=== PATIENT | female | born 1980 | race Caucasian/White ===

== ENCOUNTER 2024-10-27 03:46 | Emergency (ER) | payer OTHER ==
--- OUTSIDE RECORDS SUMMARY | 2024-10-27 03:51 | XMS REPORT | Continuity of Care Document ---
Author Name Unknown Address [address] [facility] [address] [place] [address] [facility] [address] [facility] [address] [place] [address] Care Team Providers Care Research Subject Name Role Phone Cipriano Ramirez Primary Care Physician [phone] Clayton Felix Attending Clinician [phone] Unknown, Attending Attending Clinician Unavailab CLAYTON Oglesby Attending Clinician UnavailObdulio Triplett Attending Clinician [phone] Unknown, Attending Attending Clinician Unavailab OBDULIO Sanchez Attending Clinician Unavailable Doctor Unassigned, [facility] Attending Clinician U SHAHZAD Don Attending Clinician Unavailable Shahzad Alvarez NP Attending Clinician [phone] Alia Blackmon MA Attending Clinician Unavailanshu del real Pcp, Patient Does Not Have A Attending Clinician Danielle Calle RN Attending Clinician Unavailable Only, Ang Db Test Attending Clinician UnavailMerary Kitchen MD Attending Clinician [phone] MERARY ALCARAZ Attending Clinician Unavailable MARY LOU SWANSON Attending Clinician Unavailable Kiki ECHEVERRIAPMary Lou Attending Clinician [phone] Jolanta Campbell Attending Clinician [phone] JOLANTA FISH Attending Clinician UnavailMER Teran A Attending Clinician Unavailable Provider, [facility] Attending Clinician Unavailable Lab, [facility] Pob I Attending Clinician Unavailab martina Anderson RECORDS MANAGEMENT ANALYST, Mer Lisa Attending Clinician [phone] [phone], [facility] Main Attending Clinician UnavailDelfin Mills DO Attending Clinician [phone] HAWA COPE Attending Clinician Unavaila MIKE Beckham Attending Clinician Unavailable Jacqueline Elam Attending Clinician [phone] Deb HOYT, Kevin Angelo Attending Clinician [phone] Khurram RECORDS MANAGEMENT ANALYST, Deonte Attending Clinician [phone] Kassandra RECORDS MANAGEMENT ANALYST, Clayton Simmons Attending Clinician + [phone] JACQUELINE BEAVER Attending Clinician Unavailable Jaki CARRILLO, Em Marquez Attending Clinician Natalie paulina Boyd RECORDS MANAGEMENT ANALYST, Arlyn Attending Clinician [phone] UNKNOWN, ATTENDING Attending Clinician Unavailab MANUEL Best Attending Clinician Unavailable Leana Escobar PA-C Attending Clinician [phone], [facility] Attending Clinician Unavailable SHAHZAD ALVAREZ Admitting Clinician Unavailable Payers Payer Name Policy Type Policy Number Effective Date Expirati on Date Source Problems Condition Name Condition Details Condition Category Status Onset Date Resolution Date Last Treatment Date Treating Clinician Comments Source Right ureteral stone Right ureteral stone Disease Active 11-02 00:00: 00 [facility] Ureteral stone with hydronephr osis Ureteral stone with hydronephr osis Disease Active 12-05 00:00: 00 [facility] Ureteral stone with hydronephr osis Ureteral stone with hydronephr osis Disease Active 12-05 00:00: 00 [facility] Ureteral stone with hydronephr osis Ureteral stone with hydronephr osis Disease Active 12-05 00:00: 00 [facility] UTI (lower urinary tract infection) UTI (lower urinary tract infection) Disease Active 2014-08 0-10 00:00: 00 [facility] Allergies, Adverse Reactions, Alerts Allergy Name Allergy Type Status Severity Reaction(s) Onset Date Inactive Date Treating Clinician Comments Source NO KNOWN ALLERGIE S Drug Class Active [facility] Social History Social Habit Start Date Stop Date Quantity Comments Source History of tobacco use Cigarette Smoker [facility] History SDOH Alcohol Frequency [facility] History SDOH Alcohol Std Drinks [facility] History SDOH Alcohol Binge [facility] Sexual orientation U [facility] Alcohol intake 2023-09-17 00:00:00 2023-09-17 00:00:00 Current drinker of alcohol (finding) [facility] Alcoholic beverage intake 2023-09-17 00:00:00 2023-09-17 00:00:00 Current drinker of alcohol (finding) [facility] Exposure to SARS-CoV-2 (event) 2022-10-30 00:00:00 2022-11-09 17:16:00 Not sure [facility] History of Social function 2021-03-06 00:00:00 2021-03-06 00:00:00 [facility] Cigarettes smoked current (pack per day) - Reported 2020-06-11 00:00:00 2020-06-11 00:00:00 [facility] Cigarette pack-years 2020-06-11 00:00:00 2020-06-11 00:00:00 [facility] Tobacco use and exposure 2020-06-11 00:00:00 2020-06-11 00:00:00 Smokeless tobacco non-user [facility] Alcohol Comment 2018-10-11 00:00:00 2018-10-11 00:00:00 weekends [facility] Sex assigned at 1980 00:00:00 1980 00:00:00 [facility] Smoking Status Start Date Stop Date Source Ex-smoker 2020-06-11 00:00:00 2020-06-11 00:00:00 [facility] Current every day smoker 2020-01-18 00:00:00 [facility] Medications Ordered Medication Name Filled Medication Name Start Date Stop Date Current Medication? Ordering Clinician Indication Dosage Frequency Signature (SIG) Comments Components Source levocetiriz ine 5 mg tablet 10-20 00:00: 00 Yes [id number] 5mg Take 1 tablet by mouth every evening. [facility] fluticasone propionate 50 mcg/actuati on nasal spray 10-20 00:00: 00 11-20 04:59 :00 Yes [id number] 1{spray } Use 1 Orestes in each nostril in the morning for 30 days. [facility] cefdinir 300 mg capsule 10-20 00:00: 00 10-28 05:59 :00 Yes [id number] 300mg Take 1 capsule by mouth in the morning and 1 capsule in the evening. Do all this for 7 days. [facility] ofloxacin 0.3 % ophthalmic solution 09-17 00:00: 00 Yes [id number] 1[drp] Place 1 Drop in left eye 4 (four) times daily. [facility] cefTRIAXone (ROCEPHIN) 1,000 mg in NaCl 0.9% (NS) 100 mL MINI-BAG 11-10 01:15: 00 11-10 01:27 :00 No 1000mg 1,000 mg, IV Piggyback, ONCE, 1 dose, On Thu11/09/22 at 2015, Administer over 30 Minutes, 100 mL
Reas on for Anti-Infec tive: Documented Infection< br>Documen raya Infection Site: Urine
D uration of Therapy: 7 days [facility] ketorolac (TORADOL) injection 30 mg 11-09 22:45: 00 11-09 22:13 :00 No 30mg 30 mg, Slow IV Push, ONCE, 1 dose, On Thu11/09/22 at 1745, Routine [facility] ketorolac 10 mg tablet 11-09 00:00: 00 Yes [id number] 10mg Take 1 tablet by mouth every 6 (six) hours as needed for Pain (scale 4-6) or Pain (scale 7-10). [facility] cefdinir 300 mg capsule 11-09 00:00: 00 11-20 04:59 :00 No [id number] 300mg Take 1 capsule by mouth every 12 (twelve) hours for 10 days. [facility] clonazePAM (KLONOPIN) 0.5 mg tablet 1-11 14:22: 05 Yes .5mg Take 0.5 mg by mouth 3 (three) times daily. [facility] cephALEXin (KEFLEX) 500 mg capsule 03-08 00:00: 00 03-16 04:59 :00 No 500mg Take 1 capsule by mouth 2 (two) times daily for 7 days. [facility] cephALEXin (KEFLEX) 500 mg capsule 12-14 00:00: 00 03-08 00:00 :00 No [id number] 500mg Take 1 capsule by mouth 2 (two) times daily. [facility] nitrofurant oin 50 mg capsule 01-17 00:00: 00 Yes [id number] Take 1 PO after intercours e [facility] Nitrofurant oin&Nit. Macrocryst (MACROBID) 100 mg capsule 11-30 00:00: 00 01-17 00:00 :00 No [id number] 100mg Take 1 capsule by mouth 2 (two) times daily with meals. [facility] bromphenira mine-pseudo ephedrine-D M (BROMFED DM) 2-30-10 mg/5 mL syrup 10-23 00:00: 11-09 00:00 :00 No [id number] 5mL Take 5 mL by mouth 3 (three) times daily as needed for Cough. [facility] ibuprofen 400 mg tablet 10-23 00:00: 00 11-09 00:00 :00 No [id number] 400mg Take 1 tablet by mouth every 6 (six) hours as needed for Temp > 38.5 C. [facility] clonazePAM (KLONOPIN) 0.5 mg tablet 1 17:45: 53 Yes .5mg Take 0.5 mg by mouth 3 (three) times daily. [facility] oseltamivir (TAMIFLU) 75 mg capsule 09-17 00:00: 00 09-23 05:59 :00 No [id number] 75mg Take 1 capsule by mouth 2 (two) times daily for 5 days. [facility] phenazopyri dine (PYRIDIUM) 100 mg tablet 09-01 00:00: 00 11-09 00:00 :00 No [id number] 200mg Take 2 tablets by mouth 3 (three) times daily as needed for Pain (scale 4-6). [facility] ciprofloxac in HCl 500 mg tablet 09-01 00:00: 11-30 00:00 :00 No [id number] 500mg Take 1 tablet by mouth every 12 (twelve) hours. [facility] ciprofloxac in HCl 500 mg tablet 2018-08 00:00: 11-30 00:00 :00 No [id number] 500mg Take 1 tablet by mouth every 12 (twelve) hours. [facility] Nitrofurant oin&Nit. Macrocryst (MACROBID) 100 mg capsule 05-11 00:00: 00 11-30 00:00 :00 No [id number] 100mg Take 1 capsule by mouth SEE-INSTRU CTIONS. Take 1 PO after intercours e [facility] ciprofloxac in HCl (CIPRO) 500 mg tablet 04-20 00:00: 00 05-11 00:00 :00 No [id number] 500mg Take 1 tablet by mouth every 12 (twelve) hours. [facility] ciprofloxac in HCl (CIPRO) 500 mg tablet 03-10 00:00: 00 04-20 00:00 :00 No [id number] 500mg Take 1 tablet by mouth 2 (two) times daily. [facility] clonazePAM (KLONOPIN) 0.5 mg tablet 02-01 21:08: 10 Yes .5mg Take 0.5 mg by mouth 3 (three) times daily. [facility] ondansetron (ZOFRAN ODT) 4 mg disintegrat ing tablet 01-25 00:00: 00 11-09 00:00 :00 No [id number] 4mg Take 1 tablet by mouth every 8 (eight) hours as needed for Nausea and Vomiting (N/V). [facility] dicyclomine (BENTYL) 20 mg tablet 01-25 00:00: 00 11-09 00:00 :00 No [id number] 20mg Take 1 tablet by mouth 4 (four) times daily as needed for Abdominal pain. [facility] naproxen 500 mg tablet 10-11 00:00: 00 11-09 00:00 :00 No [id number] 500mg Take 1 tablet by mouth every 8 (eight) hours as needed for Pain (scale 4-6). [facility] Vital Signs Vital Name Observation Time Observation Value Comments S ource Systolic blood pressure 2024-10-20 15:36:00 110 mm[Hg] [facility] Diastolic blood pressure 2024-10-20 15:36:00 74 mm[Hg] [facility] Heart rate 2024-10-20 15:36:00 82 /min [facility] Body temperature 2024-10-20 15:36:00 37 Nay [facility] Respiratory rate 2024-10-20 15:36:00 21 /min [facility] Body height 2024-10-20 15:36:00 149.9 cm [facility] Body weight 2024-10-20 15:36:00 63.005 kg [facility] BMI 2024-10-20 15:36:00 28.05 kg/m2 [facility] Oxygen saturation in Arterial blood by Pulse oximetry 2024-10-20 15:36:00 99 /min [facility] Systolic blood pressure 2023-09-17 17:35:00 116 mm[Hg] [facility] Diastolic blood pressure 2023-09-17 17:35:00 79 mm[Hg] [facility] Heart rate 2023-09-17 17:35:00 85 /min [facility] Body temperature 2023-09-17 17:35:00 37.33 Nay [facility] Respiratory rate 2023-09-17 17:35:00 16 /min [facility] Body height 2023-09-17 17:35:00 149.9 cm [facility] Body weight 2023-09-17 17:35:00 60.782 kg [facility] BMI 2023-09-17 17:35:00 27.06 kg/m2 [facility] Oxygen saturation in Arterial blood by Pulse oximetry 2023-09-17 17:35:00 98 /min [facility] Systolic blood pressure 2022-11-10 01:22:00 129 mm[Hg] [facility] Diastolic blood pressure 2022-11-10 01:22:00 90 mm[Hg] [facility] Heart rate 2022-11-10 01:22:00 78 /min [facility] Body temperature 2022-11-10 01:22:00 36.89 Nay [facility] Respiratory rate 2022-11-10 01:22:00 18 /min [facility] Oxygen saturation in Arterial blood by Pulse oximetry 2022-11-10 01:22:00 100 /min [facility] Body height 2022-11-09 20:36:00 149.9 cm [facility] Body weight 2022-11-09 20:36:00 68.04 kg [facility] BMI 2022-11-09 20:36:00 30.30 kg/m2 [facility] Systolic blood pressure 2022-04-20 21:31:00 136 mm[Hg] [facility] Diastolic blood pressure 2022-04-20 21:31:00 94 mm[Hg] [facility] Heart rate 2022-04-20 21:31:00 90 /min Un[facility] Body temperature 2022-04-20 21:31:00 36.94 Nay [facility] Respiratory rate 2022-04-20 21:31:00 17 /min [facility] Body height 2022-04-20 21:31:00 149.9 cm [facility] Body weight 2022-04-20 21:31:00 66.815 kg [facility] BMI 2022-04-20 21:31:00 29.75 kg/m2 [facility] Oxygen saturation in Arterial blood by Pulse oximetry 2022-04-20 21:31:00 99 /min [facility] Systolic blood pressure 2021-09-03 20:21:00 129 mm[Hg] [facility] Diastolic blood pressure 2021-09-03 20:21:00 84 mm[Hg] [facility] Heart rate 2021-09-03 20:21:00 87 /min [facility] Body temperature 2021-09-03 20:21:00 36.5 Nay [facility] Respiratory rate 2021-09-03 20:21:00 16 /min [facility] Body height 2021-09-03 20:21:00 152.4 cm [facility] Body weight 2021-09-03 20:21:00 67.132 kg [facility] BMI 2021-09-03 20:21:00 28.90 kg/m2 [facility] Oxygen saturation in Arterial blood by Pulse oximetry 2021-09-03 20:21:00 98 /min [facility] Systolic blood pressure 2021-03-06 16:21:00 128 mm[Hg] [facility] Diastolic blood pressure 2021-03-06 16:21:00 85 mm[Hg] [facility] Heart rate 2021-03-06 16:21:00 90 /min [facility] Body temperature 2021-03-06 16:21:00 36.44 Nay [facility] Respiratory rate 2021-03-06 16:21:00 16 /min [facility] Body height 2021-03-06 16:21:00 154.9 cm [facility] Body weight 2021-03-06 16:21:00 71.487 kg [facility] BMI 2021-03-06 16:21:00 29.78 kg/m2 [facility] Oxygen saturation in Arterial blood by Pulse oximetry 2021-03-06 16:21:00 99 /min [facility] Systolic blood pressure 2020-07-26 01:04:00 128 mm[Hg] [facility] Diastolic blood pressure 2020-07-26 01:04:00 86 mm[Hg] [facility] Heart rate 2020-07-26 01:04:00 99 /min [facility] Body temperature 2020-07-26 01:04:00 37.72 Nay [facility] Respiratory rate 2020-07-26 01:04:00 18 /min [facility] Body height 2020-07-26 01:04:00 154.9 cm [facility] Body weight 2020-07-26 01:04:00 70.308 kg [facility] BMI 2020-07-26 01:04:00 29.29 kg/m2 [facility] Oxygen saturation in Arterial blood by Pulse oximetry 2020-07-26 01:04:00 97 /min [facility] Systolic blood pressure 2020-06-12 00:34:00 139 mm[Hg] [facility] Diastolic blood pressure 2020-06-12 00:34:00 88 mm[Hg] [facility] Heart rate 2020-06-12 00:34:00 98 /min [facility] Body temperature 2020-06-12 00:34:00 36.72 Nay [facility] Respiratory rate 2020-06-12 00:34:00 16 /min [facility] Body height 2020-06-12 00:34:00 152.4 cm [facility] Body weight 2020-06-12 00:34:00 71.215 kg [facility] BMI 2020-06-12 00:34:00 30.66 kg/m2 [facility] Oxygen saturation in Arterial blood by Pulse oximetry 2020-06-12 00:34:00 97 /min [facility] Systolic blood pressure 2020-01-18 18:44:00 127 mm[Hg] [facility] Diastolic blood pressure 2020-01-18 18:44:00 86 mm[Hg] [facility] Heart rate 2020-01-18 18:44:00 80 /min [facility] Body temperature 2020-01-18 18:44:00 36.83 Nay [facility] Respiratory rate 2020-01-18 18:44:00 20 /min [facility] Body height 2020-01-18 18:44:00 149.9 cm [facility] Body weight 2020-01-18 18:44:00 70.571 kg [facility] BMI 2020-01-18 18:44:00 31.42 kg/m2 [facility] Oxygen saturation in Arterial blood by Pulse oximetry 2020-01-18 18:44:00 98 /min [facility] Systolic blood pressure 2019-10-25 00:41:00 126 mm[Hg] [facility] Diastolic blood pressure 2019-10-25 00:41:00 84 mm[Hg] [facility] Heart rate 2019-10-25 00:41:00 93 /min [facility] Body temperature 2019-10-25 00:41:00 37.17 Nay [facility] Respiratory rate 2019-10-25 00:41:00 18 /min [facility] Body height 2019-10-25 00:41:00 149.9 cm [facility] Body weight 2019-10-25 00:41:00 70.308 kg [facility] BMI 2019-10-25 00:41:00 31.31 kg/m2 [facility] Oxygen saturation in Arterial blood by Pulse oximetry 2019-10-25 00:41:00 96 /min [facility] Systolic blood pressure 2019-09-17 18:24:00 119 mm[Hg] [facility] Diastolic blood pressure 2019-09-17 18:24:00 72 mm[Hg] [facility] Heart rate 2019-09-17 18:24:00 88 /min [facility] Body temperature 2019-09-17 18:24:00 36.89 Nay [facility] Respiratory rate 2019-09-17 18:24:00 18 /min [facility] Body height 2019-09-17 18:24:00 152.4 cm [facility] Body weight 2019-09-17 18:24:00 71.215 kg [facility] BMI 2019-09-17 18:24:00 30.66 kg/m2 [facility] Oxygen saturation in Arterial blood by Pulse oximetry 2019-09-17 18:24:00 97 /min [facility] Systolic blood pressure 2019-09-17 17:45:00 119 mm[Hg] [facility] Diastolic blood pressure 2019-09-17 17:45:00 72 mm[Hg] [facility] Heart rate 2019-09-17 17:45:00 88 /min [facility] Body temperature 2019-09-17 17:45:00 36.89 Nay [facility] Respiratory rate 2019-09-17 17:45:00 18 /min [facility] Body height 2019-09-17 17:45:00 152.4 cm [facility] Body weight 2019-09-17 17:45:00 72.213 kg [facility] BMI 2019-09-17 17:45:00 31.09 kg/m2 [facility] Oxygen saturation in Arterial blood by Pulse oximetry 2019-09-17 17:45:00 97 /min [facility] Systolic blood pressure 2019-05-11 20:34:00 106 mm[Hg] [facility] Diastolic blood pressure 2019-05-11 20:34:00 68 mm[Hg] [facility] Heart rate 2019-05-11 20:34:00 83 /min [facility] Body temperature 2019-05-11 20:34:00 36.61 Nay [facility] Respiratory rate 2019-05-11 20:34:00 18 /min [facility] Body height 2019-05-11 20:34:00 149.9 cm [facility] Body weight 2019-05-11 20:34:00 65.318 kg [facility] BMI 2019-05-11 20:34:00 29.08 kg/m2 [facility] Systolic blood pressure 2019-03-10 15:36:00 125 mm[Hg] [facility] Diastolic blood pressure 2019-03-10 15:36:00 87 mm[Hg] [facility] Heart rate 2019-03-10 15:36:00 80 /min [facility] Body temperature 2019-03-10 15:36:00 36.83 Nay [facility] Respiratory rate 2019-03-10 15:36:00 18 /min [facility] Body height 2019-03-10 15:36:00 149.9 cm [facility] Body weight 2019-03-10 15:36:00 65.59 kg [facility] BMI 2019-03-10 15:36:00 29.21 kg/m2 [facility] Procedures Procedure Date / Time Performed Performing Clinician Source POCT MOLECULAR FLU 2024-10-20 15:49:00 Unknown, Attend ing [facility] POCT URINALYSIS 2024-10-20 15:48:00 Clayton Cannon [facility] POCT MOLECULAR STREP 2024-10-20 15:45:00 Unknown, Atte dean [facility] ASSIGNMENT OF BENEFITS 2023-09-17 17:20:25 Docto r Unassigned, [facility] CT ABDOMEN PELVIS WO CONTRAST 2022-11-09 23:39:15 Shahzad Alvarez [facility] COMP. METABOLIC PANEL ([id number]) 2022-11-09 22:12:00 Shahzad Alvarez [facility] CBC WITH DIFF 2022-11-09 22:12:00 Shahzad Alvarez [facility] URINALYSIS 2022-11-09 22:12:00 Shahzad Alvarez [facility] POCT TEST 2022-11-09 22:09:00 Shahzad Alvarez [facility] NOTICE OF PRIVACY PRACTICES 2022-11-09 20:34:23 Doctor Unassigned, [facility] CONSENT/REFUSAL FOR DIAGNOSIS AND TREATMENT 2022-11-09 20:31:15 Doctor Unassigned, [facility] POCT MOLECULAR FLU 2022-04-20 21:46:00 [facility] 2022-04-20 21:35:00 Mary Lou Swanson [facility] ASSIGNMENT OF BENEFITS 2022-04-20 21:26:38 Docto r Unassigned, [facility] POCT MOLECULAR STREP 2021-09-03 20:26:00 Merary Alcaraz [facility] US RETROPERITONEAL COMPLETE 2021-03-12 01:09:17 Mer Anderson [facility] ASSIGNMENT OF BENEFITS 2021-03-06 17:55:37 Docto r Unassigned, [facility] ASSIGNMENT OF BENEFITS 2020-12-12 19:18:44 Docto r Unassigned, [facility] POCT GRP A STREP (MOLECULAR) 2020-07-26 01:26:00 Clayton Cannon [facility] POCT FLU A AND B (MOLECULAR) 2020-07-26 01:26:00 Clayton Cannon [facility] POCT FLU A AND B (MOLECULAR) 2020-06-12 00:36:00 Arlyn Boyd [facility] POCT URINALYSIS AUTO 2020-01-18 18:47:00 Mer Anderson [facility] ASSIGNMENT OF BENEFITS 2019-11-29 14:50:56 Docto r Unassigned, [facility] POCT GRP A STREP (MOLECULAR) 2019-10-24 00:00:00 Kiki [facility] POCT FLU A AND B (MOLECULAR) 2019-10-24 00:00:00 Kiki [facility] POCT GRP A STREP (MOLECULAR) 2019-09-17 18:16:00 Kiki [facility] POCT FLU A AND B (MOLECULAR) 2019-09-17 18:16:00 Kiki [facility] POCT URINALYSIS AUTO 2019-05-11 20:37:00 Mer Anderson [facility] ASSIGNMENT OF BENEFITS 2019-04-18 19:58:49 Docto r Unassigned, [facility] URINE CULTURE 2019-03-10 15:50:00 Mer Anderson [facility] POCT URINALYSIS AUTO 2019-03-10 15:48:00 Mer Anderson [facility] Encounters Start Date/Time End Date/Time Encounter Type Admission Type Attending [facility] Care Facility Care Department Encounter ID Source 2024-10-20 10:00:00 2024-10-20 10:20:00 Urgent Care Clayton Cannon Unknown, Attending COUNTS INCLUDE 234 BEDS AT THE [facility] 1..[id number] [facility] 2024-10-20 10:00:00 2024-10-20 10:00:00 Outpatient R CLAYTON CANNON [facility] [id number] [facility] 2023-09-17 11:20:00 2023-09-17 11:40:00 Urgent Care Obdulio Magaña, Attending COUNTS INCLUDE 234 BEDS AT THE [facility] [id number]..[id number] [facility] 2023-09-17 11:20:00 2023-09-17 11:20:00 Outpatient R OBDULIO MAGAÑA [facility] [id number] [facility] 2023-09-17 00:00:00 2023-09-17 00:00:00 Orders Only Doctor Unassigned, [facility] 1..840.114 350.1.13.10 4.2.7.2.686 [id number] [facility] 2023-09-17 00:00:00 2023-09-17 00:00:00 Letter (Out) Obdulio Magaña COUNTS INCLUDE 234 BEDS AT THE [facility] 1..840.114 350.1.13.10 4.2.7.2.686 [id number] [facility] 2022-11-09 15:36:00 2022-11-09 20:31:00 Emergency X SHAHZAD ALVAREZ [facility] ERT [id number] [facility] 2022-11-09 15:36:00 2022-11-09 20:31:00 Emergency Shahzad Alvarez [facility] 1..114 350.1.13.10 4.2.7.2.686 [id number] [facility] 2022-08-12 00:00:00 2022-08-12 00:00:00 Telephone Blackmon, Alia WOOD 1.0.114 350.1.13.10 4.2.7.2.686 [id number] [facility] 2022-08-08 00:00:00 2022-08-08 00:00:00 Case Management Blackmon, Alia WOOD 1.2.114 350.1.13.10 4.2.7.2.686 [id number] [facility] 2022-05-22 00:00:00 2022-05-22 00:00:00 Telephone Pcp, Patient Does Not Have A COUNTS INCLUDE 234 BEDS AT THE [facility] 1.84.114 350.1.13.10 4.2.7.2.686 [id number] [facility] 2022-05-14 00:00:00 2022-05-14 00:00:00 Letter (Out) Danielle Calle [facility] 1.114 350.1.13.10 4.2.7.2.686 [id number] [facility] 2022-05-13 10:30:00 2022-05-13 10:45:00 Laboratory Only Only, Ang Db Test Kieran Merary COUNTS INCLUDE 234 BEDS AT THE [facility] 1.2840.114 350.1.13.10 4.2.7.2.686 [id number] 370 [id number] [facility] 2022-05-13 10:30:00 2022-05-13 10:30:00 Outpatient R MERARY ALCARAZ [facility] [id number] [facility] 2022-04-21 00:00:00 2022-04-21 00:00:00 Letter (Out) Danielle Calle [facility] 1.2.840.114 350.1.13.10 4.2.7.2.686 [id number] [facility] 2022-04-20 16:20:00 2022-04-20 17:08:12 Outpatient R KIKI MARY LOU [facility] [id number] [facility] 2022-04-20 16:20:00 2022-04-20 17:08:12 Urgent Care Kiki [facility] 1.2.840.114 350.1.13.10 4.2.7.2.686 [id number] [facility] 2022-04-20 00:00:00 2022-04-20 00:00:00 Orders Only Doctor Unassigned, [facility] 1.2.840.114 350.1.13.10 4.2.7.2.686 [id number] [facility] 2021-09-03 14:00:00 2021-09-03 14:20:00 [facility] 1.2.840.114 350.1.13.10 4.2.7.2.686 [id number] [facility] 2021-09-03 14:00:00 2021-09-03 14:00:00 Outpatient R JOLANTA FISH [facility] [id number] [facility] 2021-05-08 15:00:00 2021-05-08 15:00:00 Outpatient R MER ANDERSON [facility] [id number] [facility] 2021-04-24 00:00:00 2021-04-24 00:00:00 Telephone Provider, Anastacio [facility] 1.114 350.1.13.10 4.2.7.2.686 [id number] [facility] 2021-04-23 11:39:19 2021-04-23 11:54:19 Laboratory Only Only, Anastacio Db Test Góemz [facility] 1.114 350.1.13.10 4.2.7.2.686 [id number] [facility] 2021-04-23 11:40:00 2021-04-23 11:40:00 Outpatient R GÓMEZ [facility] [id number] [facility] 2021-04-08 16:20:00 2021-04-08 16:20:00 Outpatient R JOLANTA FISH [facility] [id number] [facility] 2021-04-07 20:40:00 2021-04-07 20:40:00 Outpatient R CLAYTON CANNON [facility] [id number] [facility] 2021-04-05 15:12:04 2021-04-05 15:32:04 Laboratory Only Lab, Adc Fam Pob Eliezer Magaña [facility] 1.114 350.1.13.10 4.2.7.2.686 [id number] [facility] 2021-04-05 15:20:00 2021-04-05 15:20:00 Outpatient R GÓMEZ [facility] [id number] [facility] 2021-03-11 19:30:00 2021-03-11 23:59:00 Hospital Encounter Mer Anderson [facility] 1.114 350.1.13.10 4.2.7.2.686 [id number] [facility] 2021-03-11 00:00:00 2021-03-11 00:00:00 Outpatient R MER ANDERSON [facility] [id number] [facility] 2021-03-08 00:00:00 2021-03-08 00:00:00 Telephone Mer Anderson [facility] 1.2.840.114 350.1.13.10 4.2.7.2.686 [id number] [facility] 2021-03-06 12:58:36 2021-03-06 13:13:36 Equities Trader Visit Pob, Adc Lab Main Mer Anderson [facility] 1.2.840.114 350.1.13.10 4.2.7.2.686 [id number] [facility] 2021-03-06 11:03:59 2021-03-06 11:31:24 Office Visit Mer Anderson [facility] 1.2.840.114 350.1.13.10 4.2.7.2.686 [id number] [facility] 2021-03-06 11:00:00 2021-03-06 11:00:00 Outpatient R MER ANDERSON [facility] [id number] [facility] 2021-03-06 00:00:00 2021-03-06 00:00:00 Orders Only Doctor Unassigned, [facility] 1.2840.114 350.1.13.10 4.2.7.2.686 [id number] [facility] 2021-01-02 08:00:00 2021-01-02 08:00:00 Outpatient R MER ANDERSON [facility] [id number] [facility] 2020-12-14 00:00:00 2020-12-14 00:00:00 Telephone Mer Anderson [facility] 1.2.840.114 350.1.13.10 4.2.7.2.686 [id number] [facility] 2020-12-12 14:21:14 2020-12-12 14:36:14 Equities Trader Visit Pob, Adc Lab Main Mer Anderson [facility] 1.2.840.114 350.1.13.10 4.2.7.2.686 [id number] [facility] 2020-12-12 14:30:00 2020-12-12 14:30:00 Outpatient R COOKIE ANDERSONELA [facility] [id number] [facility] 2020-12-12 00:00:00 2020-12-12 00:00:00 Case Management Mer Anderson [facility] 1.2.840.114 350.1.13.10 4.2.7.2.686 [id number] [facility] 2020-12-12 00:00:00 2020-12-12 00:00:00 Orders Only Doctor Unassigned, [facility] 1.2.840.114 350.1.13.10 4.2.7.2.686 [id number] [facility] 2020-11-12 00:00:00 2020-11-12 00:00:00 Patient Outreach Delfin Gregg [facility] 1.2.840.114 350.1.13.10 4.2.7.2.686 [id number] [facility] 2020-10-05 14:30:00 2020-10-05 14:30:00 Outpatient HAWA ART [facility] [id number] [facility] 2020-08-30 09:30:00 2020-08-30 09:30:00 Outpatient MIKE SPEARS [facility] [id number] [facility] 2020-07-29 00:00:00 2020-07-29 00:00:00 Telephone Jacqueline Beaver [facility] Special[facility] chrystal Bach 1..114 350.1.13.10 4.2.7.2.686 [id number] [facility] 2020-07-28 00:00:00 2020-07-28 00:00:00 Letter (Out) Kevin Boyd [facility] 1..114 350.1.13.10 4.2.7.2.686 [id number] [facility] 2020-07-25 18:50:55 2020-07-25 19:10:55 Urgent Care Deonte Paulson Kimberly J [facility] 1.114 350.1.13.10 4.2.7.2.686 [id number] [facility] 2020-07-25 15:13:48 2020-07-25 15:33:48 Laboratory Only Lab, Adc Fam Pob I Jacqueline Beaver [facility] 1.114 350.1.13.10 4.2.7.2.686 [id number] [facility] 2020-07-25 15:20:00 2020-07-25 15:20:00 Outpatient R JACQUELINE BEAVER [facility] [id number] [facility] 2020-06-12 00:00:00 2020-06-12 00:00:00 Telephone Em Suggs [facility] 1..114 350.1.13.10 4.2.7.2.686 [id number] [facility] 2020-06-12 00:00:00 2020-06-12 00:00:00 Telephone [facility] 1.114 350.1.13.10 4.2.7.2.686 [id number] [facility] 2020-06-11 19:31:09 2020-06-11 19:46:09 Urgent Care Arlyn Boyd Unknown, Attending [facility] 1.114 350.1.13.10 4.2.7.2.686 [id number] [facility] 2020-06-11 19:45:00 2020-06-11 19:45:00 Outpatient R UNKNOWN, ATTENDING [facility] [id number] [facility] 2020-02-02 10:15:00 2020-02-02 10:15:00 Outpatient R LEXIEMANUEL GRANADOS [facility] [id number] [facility] 2020-01-18 13:00:25 2020-01-18 14:27:24 Office Visit Mer Anderson [facility] 1.84.114 350.1.13.10 4.2.7.2.686 [id number] [facility] 2020-01-18 13:00:00 2020-01-18 13:00:00 Outpatient R MER ANDERSON [facility] [id number] [facility] 2020-01-11 15:00:00 2020-01-11 15:00:00 Outpatient R MER ANDERSON [facility] [id number] [facility] 2019-12-01 00:00:00 2019-12-01 00:00:00 Telephone Mer Anderson [facility] .84.114 350.1.13.10 4.2.7.2.686 [id number] [facility] 2019-11-29 09:57:59 2019-11-29 10:12:59 Equities Trader Visit Pob, Adc Lab Main Mer Anderson [facility] 1..114 350.1.13.10 4.2.7.2.686 [id number] [facility] 2019-11-29 10:00:00 2019-11-29 10:00:00 Outpatient R COOKIE ANDERSONELA [facility] [id number] [facility] 2019-11-29 00:00:00 2019-11-29 00:00:[address] [facility]..114 350.1.13.10 4.2.7.2.686 [id number] [facility] 2019-11-29 00:00:00 2019-11-29 00:00:00 Orders Only Doctor Unassigned, [facility] 1..114 350.1.13.10 4.2.7.2.686 [id number] [facility] 2019-10-24 18:33:15 2019-10-24 18:48:15 Urgent Care Liv Escobarcy Unknown, Attending [facility] 1..114 350.1.13.10 4.2.7.2.686 [id number] [facility] 2019-10-24 18:30:00 2019-10-24 18:30:00 Outpatient R UNKNOWN, ATTENDING [facility] [id number] [facility] 2019-09-17 12:24:01 2019-09-17 12:39:01 Urgent Care Green Mary Lou Unknown, Attending [facility] 1..114 350.1.13.10 4.2.7.2.686 [id number] [facility] 2019-09-17 11:45:00 2019-09-17 12:00:00 Urgent Care Green, Mary Lou Unknown, Attending [facility] 1.0.114 350.1.13.10 4.2.7.2.686 [id number] [facility] 2019-05-11 15:19:29 2019-05-11 16:06:10 Office Visit Mer Anderson [facility] 1.2.840.114 350.1.13.10 4.2.7.2.686 [id number] [facility] 2019-05-06 15:43:22 2019-05-06 15:58:22 Equities Trader Visit 1, Adc Lab Mer Anderson [facility] 1.2.840.114 350.1.13.10 4.2.7.2.686 [id number] [facility] 2019-04-20 00:00:00 2019-04-20 00:00:00 Telephone Mer Anderson [facility] 1.2.840.114 350.1.13.10 4.2.7.2.686 [id number] [facility] 2019-04-20 00:00:00 2019-04-20 00:00:00 Telephone Mer Anderson [facility] 1.2.840.114 350.1.13.10 4.2.7.2.686 [id number] [facility] 2019-04-18 14:58:12 2019-04-18 15:13:12 Equities Trader Visit 1, Adc Lab Mer Anderson [facility] 1.2.840.114 350.1.13.10 4.2.7.2.686 [id number] [facility] 2019-04-18 00:00:00 2019-04-18 00:00:00 Orders Only Doctor Unassigned, [facility] 1.2.840.114 350.1.13.10 4.2.7.2.686 [id number] [facility] 2019-03-10 10:32:18 2019-03-10 10:57:11 Office Visit [facility] 1.2.840.114 350.1.13.10 4.2.7.2.686 [id number] [facility] Results Test Description Test Time Test Comments Results Result Co mments Source [facility] Urinalysis W Specific [id number] 15:56:00* Test Item Value Reference Range Interpretation Comme nts POCT U SP GRAV (test code = 3255) 1.020 mg/dl 1.005-1.025 POCT PH U (test code = 3254) 5 mg/dl 5-8 POCT U LEUK EST (test code = 3263) Trace Negative - Negative POCT U NIT (test code = 3262) Positive Negative - Negati ve POCT U PROT (test code = 3259) negative Negative - Negative POCT U GLU (test code = 3256) normal Negative - Negati ve POCT U KETONE (test code = 3258) negative Negative - Negative POCT U UROBILI (test code = 3260) normal 0.2-1 POCT U BILI (test code = 3261) negative Negative - Negative POCT U BLD (test code = 3257) negative Negative - Negati ve POCT U COLOR (test code = 3266) yellow POCT U APPEAR (test code = 3267) cloudy Lab Interpretation (test cod e = 71844-3) Abnormal [facility] MOLECULAR [id number] 15:52:59* Test Item Value Reference Range Interpretation Comme nts POCT Molecular Strep (test c ode = 66342-0) Negative Negative Lab Interpretation (test cod e = 91075-7) [facility] [id number] 22:09:00* Test Item Value Reference Range Interpretation Comme nts POCT PREG (test code = 1605) NEGATIVE On board controls acceptable with C Line (test code = 3574) present POCT PREG LOT # (test code = 3575) [id number] POCT PREG TEST DATE ( test code = 3576) 01/22/2024 Lab Interpretation (test cod e = 70272-0) Normal [facility] MOLECULAR [id number] 21:58:27* Test Item Value Reference Range Interpretation Comme nts POCT Molecular FluA (test co de = 19370-0) Negative Negative POCT Molecular FluB (test co de = 09337-4) Negative Negative Lab Interpretation (test cod e = 58225-1) Normal [facility] MOLECULAR [id number] 21:45:45* Test Item Value Reference Range Interpretation Comme nts POCT Molecular Strep (test c ode = 38877-2) Negative Negative Lab Interpretation (test cod e = 92254-0) Normal [facility] MOLECULAR [id number] 20:33:37* Test Item Value Reference Range Interpretation Comme nts POCT Molecular Strep (test c ode = 76656-6) Negative Negative Lab Interpretation (test cod e = 64887-2) Normal [facility] RETROPERITONEAL [id number] 03:34:14 No hydronephrosis. 1.5 cm right renal cyst. Hepatic steatosis. RL: 111 EXAMINATION: US RETROPERITONEAL COMPLETE ORDERING PHYSICIAN: MER ANDERSON CLINICAL HISTORY: right Bosniak II renal cyst ; COMPARISON: None available TECHNIQUE: Sonographic images of both kidneys and the urinary bladder wereobtained. FINDINGS: Both kidneys are normal in echogenicity. The right kidneymeasures 11.9 x 4.2 x 5.0 cm. 1.5 x 1.2 x 1.7 cm right renal cyst. The leftkidney hdmyoswf61.7 x 4.8 x 4.9 cm. No hydronephrosis or echogenic renalcalculi. The urinary bladder wall does not appear thickened. Hepaticsteatosis. [facility], Radiant Results Inft User - 10:35 PM CDT EXAMINATION: US RETROPERITONEAL COMPLETEORDERING PHYSICIAN: MER ANDERSONCLINICAL HISTORY: right Bosniak II renal cyst ;COMPARISON: None availableTECHNIQUE: Sonographic images of both kidneys and the urinary bladder w ereobtained.FINDINGS: Both kidneys are normal in echogenicity. The right kidneymeasures 11.9 x 4.2 x 5.0 cm. 1.5 x 1.2 x 1.7 cm right renal cyst. The leftkidney nstahjnn90.7 x 4.8 x 4.9 cm. No hydronephrosis or echogenic renalcalculi. The urinary bladder wall does not appear thickened. Hepaticsteato sis.IMPRESSIONNo hydronephrosis.1.5 cm right renal cyst. Hepatic steatosis.RL: 111 [facility] GRP A STREP (MOLECULAR)2020-07-26 01:38:00* Test Item Value Reference Range Interpretation Comme nts POCT GP A STREP (test code = 56297-3) negative Negative - Negative DINORAH (test code = DINORAH) accurate developme nt and interpretation of all internal controls Lab Interpretation (test code = 92043-8) [facility] FLU A AND B (MOLECULAR)2020-07-26 01:38:00* Test Item Value Reference Range Interpretation Comme nts POCT INFLUENZA A (test code = 3840) negative Negative - Negative POCT INFLUENZA B (test code = 3841) negative Negative - Negative DINORAH (test code = DINORAH) accurate developme nt and interpretation of all internal controls Lab Interpretation (test code = 12002-6) [facility] GRP A STREP (MOLECULAR)2020-07-26 01:38:00* Test Item Value Reference Range Interpretation Comme nts POCT GP A STREP (test code = 65403-7) negative Negative - Negative DINORAH (test code = DINORAH) accurate developme nt and interpretation of all internal controls Lab Interpretation (test code = 72509-7) [facility] FLU A AND B (MOLECULAR)2020-07-26 01:38:00* Test Item Value Reference Range Interpretation Comme nts POCT INFLUENZA A (test code = 3840) negative Negative - Negative POCT INFLUENZA B (test code = 3841) negative Negative - Negative DINORAH (test code = DINORAH) accurate developme nt and interpretation of all internal controls Lab Interpretation (test code = 76321-6) [facility] FLU A AND B (MOLECULAR)2020-06-12 00:52:00* Test Item Value Reference Range Interpretation Comme nts POCT INFLUENZA A (test code = 3840) neg Negative - Negative POCT INFLUENZA B (test code = 3841) neg Negative - Negative DINORAH (test code = DINORAH) accurate developme nt and interpretation of all internal controls Lab Interpretation (test code = 83189-2) [facility] [id number] 18:49:00 * Test Item Value Reference Range Interpretation Comme nts POCT U SP GRAV (test code = 3255) 1.030 mg/dl 1.005-1.025 A POCT PH U (test code = 3254) 5.5 mg/dl 5-8 POCT U LEUK EST (test code = 3263) Trace Negative - Negative POCT U NIT (test code = 3262) Positive Negative - Negative POCT U PROT (test code = 3259) Negative - Negative POCT U GLU (test code = 3256) Negative Negative - Negative POCT U KETONE (test code = 3258) Negative Negative - Negative POCT U UROBILI (test code = 3260) 0.2 mg/dl 0.2-1 POCT U BILI (test code = 3261) Negative Negative - Negative POCT U BLD (test code = 3257) Large Negative - Negative POCT U COLOR (test code = 3266) dark yellow POCT U APPEAR (test code = 3267) clightly cloudy Lab Interpretation (test code = 40333-3) Abnormal [facility] URINALYSIS, [id number] 18:49:00 * Test Item Value Reference Range Interpretation Comme nts POCT U SP GRAV (test code = 3255) 1.030 mg/dl 1.005-1.025 A POCT PH U (test code = 3254) 5.5 mg/dl 5-8 POCT U LEUK EST (test code = 3263) Trace Negative - Negative POCT U NIT (test code = 3262) Positive Negative - Negative POCT U PROT (test code = 3259) Negative - Negative POCT U GLU (test code = 3256) Negative Negative - Negative POCT U KETONE (test code = 3258) Negative Negative - Negative POCT U UROBILI (test code = 3260) 0.2 mg/dl 0.2-1 POCT U BILI (test code = 3261) Negative Negative - Negative POCT U BLD (test code = 3257) Large Negative - Negative POCT U COLOR (test code = 3266) dark yellow POCT U APPEAR (test code = 3267) clightly cloudy Lab Interpretation (test code = 75033-0) Abnormal [facility] FLU A AND B (MOLECULAR)2019-10-25 01:15:00* Test Item Value Reference Range Interpretation Comme nts POCT INFLUENZA A (test code = 3840) neg Negative - Negative POCT INFLUENZA B (test code = 3841) neg Negative - Negative DINORAH (test code = DINORAH) accurate developme nt and interpretation of all internal controls Lab Interpretation (test code = 09112-7) Normal [facility] GRP A STREP (MOLECULAR)2019-10-25 01:15:00* Test Item Value Reference Range Interpretation Comme nts POCT GP A STREP (test code = 53483-3) neg Negative - Negative DINORAH (test code = DINORAH) accurate developme nt and interpretation of all internal controls Lab Interpretation (test code = 59382-0) Normal [facility] FLU A AND B (MOLECULAR)2019-09-17 18:26:00* Test Item Value Reference Range Interpretation Comme nts POCT INFLUENZA A (test code = 3840) neg Negative - Negative POCT INFLUENZA B (test code = 3841) neg Negative - Negative DINORAH (test code = DINORAH) accurate developme nt and interpretation of all internal controls Lab Interpretation (test code = 46210-0) Normal [facility] GRP A STREP (MOLECULAR)2019-09-17 18:26:00* Test Item Value Reference Range Interpretation Comme nts POCT GP A STREP (test code = 57533-2) neg Negative - Negative DINORAH (test code = DINORAH) accurate developme nt and interpretation of all internal controls Lab Interpretation (test code = 94550-7) Normal [facility] URINALYSIS, [id number] 20:40:00 * Test Item Value Reference Range Interpretation Comme nts POCT U SP GRAV (test code = 3255) 1.030 mg/dl 1.005-1.025 A POCT PH U (test code = 3254) 5.0 mg/dl 5-8 POCT U LEUK EST (test code = 3263) Tarce Negative - Negative POCT U NIT (test code = 3262) Negative Negative - Negati ve POCT U PROT (test code = 3259) Negative Negative - Negative POCT U GLU (test code = 3256) Negative Negative - Negati ve POCT U KETONE (test code = 3258) Negative Negative - Negative POCT U UROBILI (test code = 3260) 0.2 mg/dl 0.2-1 POCT U BILI (test code = 3261) Negative Negative - Negative POCT U BLD (test code = 3257) Negative Negative - Negati ve POCT U COLOR (test code = 3266) yellow POCT U APPEAR (test code = 3267) clear Lab Interpretation (test cod e = 39553-5) [facility], [id number] 20:40:00 * Test Item Value Reference Range Interpretation Comme nts POCT U SP GRAV (test code = 3255) 1.030 mg/dl 1.005-1.025 A POCT PH U (test code = 3254) 5.0 mg/dl 5-8 POCT U LEUK EST (test code = 3263) Tarce Negative - Negative POCT U NIT (test code = 3262) Negative Negative - Negati ve POCT U PROT (test code = 3259) Negative Negative - Negative POCT U GLU (test code = 3256) Negative Negative - Negati ve POCT U KETONE (test code = 3258) Negative Negative - Negative POCT U UROBILI (test code = 3260) 0.2 mg/dl 0.2-1 POCT U BILI (test code = 3261) Negative Negative - Negative POCT U BLD (test code = 3257) Negative Negative - Negati ve POCT U COLOR (test code = 3266) yellow POCT U APPEAR (test code = 3267) clear Lab Interpretation (test cod e = 64386-6) Abnormal [facility] [id number] 13:57:00* Test Item Value Reference Range Interpretation Comme nts Amoxacillin/Clavulanic acid (test code = 62542-6) 4: Susceptible Ampicillin (test code = 95215-6) 16: Intermediate Ampicillin/Sulbactam (test code = 60084-8) 8: Susceptible Cefazolin (test code = 64745-1) <=4: Susceptible Ceftriaxone (test code = 42238-3) <=1: Susceptible Ciprofloxacin (test code = 86261-1) <=0.25: Susceptible Ertapenem (test code = 38866-4) <=0.5: Susceptible Gentamicin (test code = 07675-2) <=1: Susceptible Nitrofurantoin (test code = 23455-9) <=16: Susceptible Piperacillin/Tazobactam (test code = 99660-9) <=4: Susceptible Trimethoprim/Sulfamethoxa zole (test code = 12989-7) <=20: Susceptible Nitrofurantoin is not recommended for use in treating pyelonephritis or systemic disease.[facility], [id number] 15:48:00* Test Item Value Reference Range Interpretation Comme nts POCT U SP GRAV (test code = 3255) 1.020 mg/dl 1.005-1.025 POCT PH U (test code = 3254) 5.0 mg/dl 5-8 POCT U LEUK EST (test code = 3263) negative Negative - Negative POCT U NIT (test code = 3262) positive Negative - Negati ve POCT U PROT (test code = 3259) negative Negative - Negative POCT U GLU (test code = 3256) negative Negative - Negati ve POCT U KETONE (test code = 3258) Negative - Negative POCT U UROBILI (test code = 3260) 0.2 mg/dl 0.2-1 POCT U BILI (test code = 3261) negative Negative - Negative POCT U BLD (test code = 3257) Trace Negative - Negati ve POCT U COLOR (test code = 3266) dark yellow POCT U APPEAR (test code = 3267) clear Lab Interpretation (test cod e = [id number]) Abnormal [facility]
[2024-10-27] MEDS ORDERED: ONDANSETRON 4 MG/2 ML VIAL ONE (04:51)
[2024-10-27] MEDS ORDERED: NA CHLORIDE 0.9% 1,000 ML ONE (04:51)
[2024-10-27 05:20] LABS: PT Prothrombin Time 13.2 SECONDS (10.0-13.0); Protime INR 1.17
[2024-10-27] MEDS ORDERED: MORPHINE 2 MG/ML SYR ONE (05:20)
[2024-10-27 05:22] LABS: Absolute Lymphocytes (CBC) 1.4 K/uL (0.7-4.9); Absolute Monocytes 0.8 K/uL (0.1-1.3); Absolute Neutrophil 12.4 K/uL (1.8-8.0); Basophils % 0.2 % (0-1.3); Hematocrit 32.6 % (36.0-45.0); Lymphocytes % 9.3 % (15.3-44.8); MCH 30.3 pg (27.0-35.0); MCHC 33.8 g/dL (32.0-36.0); MCV 89.6 fL (80-100); MPV 8.4 fL (7.6-11.3); Monocytes % 5.6 % (3.3-12.3); Neutrophils % 84.9 % (41.7-73.7); Platelets 266 thou/uL (152-406); RBC Red Blood Cell Count 3.64 M/uL (3.86-4.86); Red Cell Distribution Width 12.6 % (12.1-15.2)
[2024-10-27] MEDS ORDERED: ACETAMINOPHEN 500 MG TAB ONE (05:25)
[2024-10-27 05:28] LABS: ALT/SGPT 22 U/L (13-56); Albumin 3.7 g/dL (3.4-5.0); Albumin/Globulin Ratio 1.1 (1.1-1.8); Alkaline Phosphatase 56 U/L (45-117); Anion Gap 9.3 mEq/L (5.0-15.0); BUN Blood Urea Nitrogen 11 mg/dL (7-18); Bicarbonate 24 mEq/L (21-32); Bilirubin Total 0.8 mg/dL (0.2-1.0); Globulin 3.4 g/dL (2.3-3.5); Glomerular Filtration Rate 115 ml/min (=/>90); Glucose Level 127 mg/dL (74-106); Potassium 3.3 mEq/L (3.5-5.1); Protein, Total 7.1 g/dL (6.4-8.2); Sodium Level 137 mEq/L (136-145)
[2024-10-27 05:29] LABS: AST/SGOT < 10 U/L (15-37); HCG, Quantitative < 1 mIU/mL (1-3)
--- NOTE | 2024-10-27 06:21 | ER ---
Nurse's Notes [facility] Name: Alva Randle Age: 43 yrs Sex: Female : 1980 Arrival Date: 10/27/2024 Time: 03:46 Bed 2 Private MD: Diagnosis: Complete or unspecified spontaneous without complication;Abnormal uterine bleeding Presentation: 10/27 04:14 Chief complaint: Patient states: had a miscarriage on Thursday, states she has been al5 passing clots along with severe lower abdominal cramping and nausea. Coronavirus screen: At this time, the client does not indicate any symptoms associated with coronavirus-19. Ebola Screen: No symptoms or risks identified at this time. Initial Sepsis Screen: Does the patient meet any 2 criteria? No. Patient's initial sepsis screen is negative. Does the patient have a suspected source of infection? No. Patient's initial sepsis screen is negative. Risk Assessment: Do you want to hurt yourself or someone else? Patient reports no desire to harm self or others. Note has an appointment at [facility] ([place], [place]) at 1030. Onset of symptoms was September 25, 2024. 04:14 Method Of Arrival: Wheelchair al5 04:14 Acuity: KM 3 al5 Triage Assessment: 04:17 General: Appears in no apparent distress. uncomfortable, slender, well groomed, al5 Behavior is calm, cooperative. Pain: Complains of pain in suprapubic area, right lower quadrant and left lower quadrant Pain currently is 10 out of 10 on a pain scale. Quality of pain is described as crampy. EENT: No signs and/or symptoms were reported regarding the EENT system. Neuro: Level of Consciousness is awake, alert, obeys commands, Oriented to person, place, time, situation. Cardiovascular: Capillary refill < 3 seconds Patient's skin is warm and dry. Respiratory: Airway is patent Respiratory effort is even, unlabored, Respiratory pattern is regular, symmetrical. GI: Reports lower abdominal pain, nausea. : Reports vaginal bleeding that is bright red, with clots, heavy flow moderate flow, intermittent. Derm: Skin is intact, is healthy with good turgor, Skin is pink, warm \T\ dry. normal. Musculoskeletal: No signs and/or symptoms reported regarding the musculoskeletal system. 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 - Infectious Disease History:: Denies. - Social history:: Smoking status: Patient denies any tobacco usage or history of. - Family history:: not pertinent. Screenin:19 [facility] ED Fall Risk Assessment (Adult) History of falling in the last 3 months, al5 including since admission No falls in past 3 months (0 pts) Confusion or Disorientation No (0 pts) Intoxicated or Sedated No (0 pts) Impaired Gait No (0 pts) Mobility Assist Device Used No (0 pt) Altered Elimination No (0 pt) Score/Fall Risk Level 0 - 2 = Low Risk Oriented to surroundings, Maintained a safe environment, Hourly rounding (assess needs \T\ fall precautionary measures) done. Abuse screen: Denies threats or abuse. Denies injuries from another. Nutritional screening: No deficits noted. Tuberculosis screening: No symptoms or risk factors identified. Assessment: 04:19 Reassessment: see triage assessment. al5 05:28 Reassessment: Patient appears in no apparent distress at this time. No changes from al5 previously documented assessment. Patient and/or family updated on plan of care and expected duration. Pain level reassessed. Patient is alert, oriented x 3, equal unlabored respirations, skin warm/dry/pink. 07:13 Reassessment: Patient appears in no apparent distress at this time. No changes from al5 previously documented assessment. Patient and/or family updated on plan of care and expected duration. Pain level reassessed. Patient is alert, oriented x 3, equal unlabored respirations, skin warm/dry/pink. Vital Signs: 04:14 BP 99 / 63; Pulse 85; Resp 18; Temp 99.1; Pulse Ox 99% on R/A; Weight 61.23 kg; Height al5 4 ft. 11 in. ; Pain 10/10; 04:30 BP 100 / 66; Pulse 79; Resp 18; Pulse Ox 97% on R/A; al5 05:00 BP 95 / 65; Pulse 75; Resp 16; Pulse Ox 100% on R/A; al5 05:30 BP 99 / 64; Pulse 75; Resp 18; Pulse Ox 100% on R/A; al5 06:00 BP 97 / 62; Pulse 71; Resp 18; Pulse Ox 100% on R/A; al5 06:30 BP 96 / 60; Pulse 70; Resp 17; Pulse Ox 98% on R/A; al5 04:14 Body Mass Index 27.27 (61.23 kg, 149.86 cm) al5 04:14 Pain Scale: Adult al5 Varun Coma Score: 10/28 01:07 Eye Response: spontaneous(4). Motor Response: obeys commands(6). Verbal Response: sp4 oriented(5). Total: 15. ED Course: 10/27 03:53 Patient arrived in ED. vc1 03:55 Cristhian Hidalgo MD is Attending Physician. sp4 04:08 Erlinda De Los Santos RN is Primary Nurse. al5 04:17 Triage completed. al5 04:18 Arm band placed on right wrist. Patient placed in the treatment room, in view of staff al5 members, on pulse oximetry. 04:19 Patient has correct armband on for positive identification. Bed in low position. Call al5 light in reach. Side rails up X 1. Provided Education on: plan of care. 04:19 No provider procedures requiring assistance completed. al5 04:32 US OB Limited In Process Unspecified. EDMS 07:12 IV discontinued, intact, bleeding controlled, No redness/swelling at site. Pressure al5 dressing applied. Administered Medications: 04:56 Drug: NS 0.9% IV 1000 ml IV at 1 bolus Per protocol; to be given as a bolus over 60 al5 minutes Route: IV; Rate: 1 bolus; Site: right antecubital; 07:12 Follow up: Response: No adverse reaction; IV Status: Completed infusion; IV Intake: al5 1000ml 04:56 Drug: Ondansetron IVP 4 mg IVP once; over 2 minutes Route: IVP; Site: right antecubital;al5 05:19 Follow up: Response: No adverse reaction; Nausea is decreased al5 05:35 Not Given (Hemodynamic Parameters): morphineor iv 4 mg IVP once over 4 mins al5 05:35 Drug: Acetaminophen PO 1000 mg PO once Route: PO; al5 06:53 Follow up: Response: No adverse reaction; Pain is unchanged, physician notified al5 05:35 Drug: morphine IVP or IV 2 mg IVP once over 4 mins Route: IVP; Infused Over: 4 mins; al5 Site: right antecubital; 06:53 Follow up: Response: No adverse reaction; Pain is unchanged, physician notified al5 07:10 Drug: Ketorolac IVP 30 mg IVP once Route: IVP; Site: right antecubital; al5 07:11 Follow up: Response: No adverse reaction; Medication administered at discharge. al5 07:10 Drug: Huntington PO 10 mg-325 mg 1 tabs PO once Route: PO; al5 07:11 Follow up: Response: No adverse reaction; Medication administered at discharge. al5 07:10 Drug: Dicyclomine PO 20 mg PO once Route: PO; al5 07:11 Follow up: Response: No adverse reaction; Medication administered at discharge. al5 Medication: 04:19 VIS not applicable for this client. al5 Intake: 07:12 IV: 1000ml; Total: 1000ml. al5 Outcome: 06:20 Discharge ordered by . sp4 07:13 Discharged to with significant other, significant other checked in as well al5 07:13 Condition: good 07:13 Instructed on discharge instructions, follow up and referral plans. medication usage, Demonstrated understanding of instructions, follow-up care, medications, Prescriptions given X 2, 07:14 Patient left the ED. al5 Signatures: Dispatcher [employer] EDMS Latia Aguillon RN RN vc1 Cristhian Hidalgo MD MD sp4 Erlinda De Los Santos RN RN al5 Corrections: (The following items were deleted from the chart) 04:20 04:19 LMP 09/30/2024, unknown al5 al5
--- NOTE | 2024-10-27 06:21 | EDPHYS ---
Physician Documentation [facility] Name: Alva Randle Age: 43 yrs Sex: Female : 1980 Arrival Date: 10/27/2024 Time: 03:46 Bed 2 Private MD: ED Physician Cristhian Hidalgo HPI: 10/27 03:55 This 43 yrs old Female presents to ER via Unassigned with complaints of sp4 vaginal bleeding . 10/28 01:07 Patient presents with acute vaginal bleeding, EGA 3 weeks. 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 - Infectious Disease History:: Denies. - Social history:: Smoking status: Patient denies any tobacco usage or history of. - Family history:: not pertinent. ROS: 10/28 01:07 Constitutional: Negative for fever, chills, and weight loss, positive for pelvic pain sp4 and vaginal bleeding All other systems are negative, Exam: 01:07 Constitutional: This is a well developed, well nourished patient who is awake, alert, sp4 and in no acute distress. Head/Face: Normocephalic, atraumatic. Eyes: Pupils equal round and reactive to light, extra-ocular motions intact. Lids and lashes normal. Conjunctiva and sclera are not injected. Cornea within normal limits. Periorbital areas with no swelling, redness, or edema. ENT: Nares patent. No nasal discharge, no septal abnormalities noted. Tympanic membranes are normal and external auditory canals are clear. Oropharynx with no redness, swelling, or masses, exudates, or evidence of obstruction, uvula midline. Mucous membranes moist. Neck: Trachea midline, no thyromegaly or masses palpated, and no cervical lymphadenopathy. Supple, full range of motion without nuchal rigidity, or vertebral point tenderness. Chest/axilla: Normal chest wall appearance and motion. Nontender with no deformity. No lesions are appreciated. Cardiovascular: Regular rate and rhythm with a normal S1 and S2. No gallops, murmurs, or rubs. Normal PMI, no JVD. No pulse deficits. Respiratory: Lungs have equal breath sounds bilaterally, clear to auscultation and percussion. No rales, rhonchi or wheezes noted. No increased work of breathing, no retractions or nasal flaring. Abdomen/GI: Soft, with normal bowel sounds. No distension or tympany. No guarding or rebound. No evidence of tenderness throughout. Back: No spinal tenderness. No costovertebral tenderness. Skin: Warm, dry with normal turgor. Normal color with no rashes, no lesions, and no evidence of cellulitis. MS/ Extremity: Pulses equal, no cyanosis. Neurovascular intact. Full, normal range of motion. Neuro: Awake and alert, GCS 15, oriented to person, place, time, and situation. Cranial nerves II-XII grossly intact. Motor strength 5/5 in all extremities. Sensory grossly intact. Psych: Awake, alert, with orientation to person, place and time. Behavior, mood, and affect are within normal limits Vital Signs: 10/27 04:14 BP 99 / 63; Pulse 85; Resp 18; Temp 99.1; Pulse Ox 99% on R/A; Weight 61.23 kg; Height al5 4 ft. 11 in. ; Pain 10/10; 04:30 BP 100 / 66; Pulse 79; Resp 18; Pulse Ox 97% on R/A; al5 05:00 BP 95 / 65; Pulse 75; Resp 16; Pulse Ox 100% on R/A; al5 05:30 BP 99 / 64; Pulse 75; Resp 18; Pulse Ox 100% on R/A; al5 06:00 BP 97 / 62; Pulse 71; Resp 18; Pulse Ox 100% on R/A; al5 06:30 BP 96 / 60; Pulse 70; Resp 17; Pulse Ox 98% on R/A; al5 04:14 Body Mass Index 27.27 (61.23 kg, 149.86 cm) al5 04:14 Pain Scale: Adult al5 Imboden Coma Score: 10/28 01:07 Eye Response: spontaneous(4). Motor Response: obeys commands(6). Verbal Response: sp4 oriented(5). Total: 15. MDM: 10/27 03:57 Medical Screening Exam initiated sp4 06:17 Differential diagnosis: dysmenorrhea, endometriosis, menorrhea, Data reviewed: vital sp4 signs, nurses notes, lab test result(s), CBC, electrolytes, hepatic panel, radiologic studies, ultrasound. Consideration of Admission/Observation Escalation of care including admission/observation considered. ED course: hCG level is negative. Possibly significant menorrhagia and dysmenorrhea. . 10/28 01:07 ED course: Vital signs are stable, stable for discharge home.. sp4 10/27 03:56 Order name: CBC with Diff; Complete Time: 06:09 sp4 10/27 03:56 Order name: CMP; Complete Time: 06:09 sp4 10/27 03:56 Order name: Abo/rh Typing sp4 10/27 03:57 Order name: HCG-Quantitative; Complete Time: 06:09 sp4 10/27 03:57 Order name: PT-INR; Complete Time: 06:09 sp4 10/27 03:56 Order name: US OB Limited sp4 10/27 03:56 Order name: IV Saline Lock; Complete Time: 04:56 sp4 10/27 03:56 Order name: Labs collected and sent; Complete Time: 04:57 sp4 Administered Medications: 10/27 04:56 Drug: NS 0.9% IV 1000 ml IV at 1 bolus Per protocol; to be given as a bolus over 60 al5 minutes Route: IV; Rate: 1 bolus; Site: right antecubital; 07:12 Follow up: Response: No adverse reaction; IV Status: Completed infusion; IV Intake: al5 1000ml 04:56 Drug: Ondansetron IVP 4 mg IVP once; over 2 minutes Route: IVP; Site: right antecubital;al5 05:19 Follow up: Response: No adverse reaction; Nausea is decreased al5 05:35 Not Given (Hemodynamic Parameters): morphineor iv 4 mg IVP once over 4 mins al5 05:35 Drug: Acetaminophen PO 1000 mg PO once Route: PO; al5 06:53 Follow up: Response: No adverse reaction; Pain is unchanged, physician notified al5 05:35 Drug: morphine IVP or IV 2 mg IVP once over 4 mins Route: IVP; Infused Over: 4 mins; al5 Site: right antecubital; 06:53 Follow up: Response: No adverse reaction; Pain is unchanged, physician notified al5 07:10 Drug: Ketorolac IVP 30 mg IVP once Route: IVP; Site: right antecubital; al5 07:11 Follow up: Response: No adverse reaction; Medication administered at discharge. al5 07:10 Drug: Stout PO 10 mg-325 mg 1 tabs PO once Route: PO; al5 07:11 Follow up: Response: No adverse reaction; Medication administered at discharge. al5 07:10 Drug: Dicyclomine PO 20 mg PO once Route: PO; al5 07:11 Follow up: Response: No adverse reaction; Medication administered at discharge. al5 Disposition Summary: 10/27/24 06:20 Discharge Ordered Notes: Location: Home sp4 Problem: new sp4 Symptoms: have improved sp4 Condition: Stable sp4 Diagnosis - Complete or unspecified spontaneous without complication sp4 - Abnormal uterine bleeding sp4 Followup: sp4 - With: Private Physician - When: 5 - 6 days - Reason: Recheck today's complaints Discharge Instructions: - Discharge Summary Sheet sp4 - Miscarriage sp4 Forms: - Work release form sp4 - Patient Portal Instructions sp4 Prescriptions: - Tramadol 50 mg Oral tablet - take 1 tablet ORAL route every 8 hours as needed; 20 tablet; Refills: 0, sp4 Product Selection Permitted - ondansetron 8 mg Oral Tablet,disintegrating - take 1 tablet ORAL route every 8 hours PRN nausea; 30 tablet; Refills: 0, sp4 Product Selection Permitted Signatures: Dispatcher [employer] EDCristhian Barr MD MD sp4 Erlinda De Los Santos RN RN al5 Corrections: (The following items were deleted from the chart) 03:56 03:56 CBC+H.LAB.BRZ ordered. EDMS EDMS 03:56 03:56 COMPREHENSIVE METABOLIC PANEL+C.LAB.BRZ ordered. EDMS EDMS 03:57 03:57 ABO/RH TYPING+BB.LAB.BRZ ordered. EDMS EDMS 03:57 03:57 OB Limited+US.RAD.BRZ ordered. EDMS EDMS 03:57 03:57 QUANTITATIVE HCG+C.LAB.BRZ ordered. EDMS EDMS 03:57 03:57 PROTIME (+INR)+COAG.LAB.BRZ ordered. EDMS EDMS
[2024-10-27] MEDS ORDERED: HYDROCODONE/APAP 10/325 TAB ONE (07:03)
[2024-10-27] MEDS ORDERED: KETOROLAC 30 MG/ML INJ ONE (07:03)
[2024-10-27] MEDS ORDERED: DICYCLOMINE HCL 10 MG CAP ONE (07:03)
[2024-10-27 07:18] VITALS: TEMP 99.1
[2024-10-27 07:24] VITALS: BP 96/60; O2SAT 98
--- NOTE | 2024-10-27 08:15 | RAD REPORT ---
EXAM: US First Trimester , Transabdominal and US Duplex Arterial/Venous of the Pelvis, Com plete CLINICAL HISTORY: The patient is 43 years old and is Female; Vaginal bleeding. . LMP Februa 2024 TECHNIQUE: Real-time transabdominal obstetrical ultrasound of the maternal pelvis and a first trime ster with image documentation. Real-time duplex ultrasound scan of the arterial and venous flow of the pelvis with color Doppler flow and spectral waveform analysis. COMPARISON: No relevant prior studies available. FINDINGS: Gestation: No intrauterine gestational sac, yolk sac or pole. Patient declined endovaginal ultrasound. Placenta/amniotic fluid: Cannot be adequately evaluated due to the early gestational age. Uterus/cervix: Uterus is 7.2 x 4.5 x 3.7. Endometrial thickness 2.6 mm. No myometrial mass. Right ovary: Right ovary 1.7 x 1.4 x 2.7 cm. No torsion. Left ovary: Left ovary 3.3 x 2.0 x 0.7 cm. 9 mm left ovarian follicle. No torsion. Free fluid: No free fluid. IMPRESSION: No intrauterine gestational sac, yolk sac or pole. Patient declined endovaginal ultrasound. Electronically signed by: Dayanara Diaz MD 10/27/2024 05:53 AM [facility] V2 Due to temporary technical issues with the PACS/[employer] reporting system, reports are being signed by the in-house radiologist without review as a courtesy to ensure prompt reporting the interpreting radiologist is fully responsible for the content of the report. Transcribed Date/Time: 10/27/2024 8:15 AM
== END 2024-10-27 07:14 | disposition home or self-care (01) ==
LOC: ER 03:46
DX: O03.9 Complete or unspecified spontaneous abortion without complication (principal)
CPT/HCPCS: 96361; 85025; 36415; 86900; 85610; 86901; 84702; 80053; 76815; 96375; 96374; 99284; J2270; J2405; J7030